=== PATIENT | male | born 1975 | race Hispanic/Latino ===

== ENCOUNTER 2020-07-13 15:59 | Emergency (ER) | payer OTHER ==
[2020-07-13] MEDS ORDERED: ACETAMINOPHEN-CODEINE 300/30MG TAB ONE (16:34)
== END 2020-07-13 18:42 | disposition home or self-care (01) ==
LOC: EDH 15:59
DX: S40.012A Contusion of left shoulder, initial encounter (principal); S90.32XA Contusion of left foot, initial encounter; V89.2XXA Person injured in unspecified motor-vehicle accident, traffic, initial encounter; Y93.89 Activity, other specified; Y92.488 Other paved roadways as the place of occurrence of the external cause; Y99.8 Other external cause status
CPT/HCPCS: 73030; 73630